=== PATIENT | male | born 1945 | race Hispanic/Latino ===

== ENCOUNTER → 2021-04-28 | Day surgery (SDC) | payer OTHER ==
[2021-04-24 09:43] LABS: BASOPHILS # (AUTO) 0.1 (0.0-0.1); BASOPHILS % 0.9 % (0.0-1.0); EOSINOPHILS # (AUTO) 0.1 (0.0-0.4); HEMATOCRIT 42.9 % (38.2-49.6); HEMOGLOBIN 14.3 g/dL (14.0-18.0); LYMPHOCYTES % 24.8 % (18.0-39.1); MEAN CORPUSCULAR HGB CONC 33.3 g/dL (31-35); MEAN CORPUSCULAR VOLUME 92.9 fL (81-99); MONOCYTES # (AUTO) 0.6 (0.2-0.8); MONOCYTES % 7.7 % (4.4-11.3); NEUTROPHILS # (AUTO) 5.2 (2.1-6.9); NEUTROPHILS % 65.5 % (38.7-80.0); PLATELET COUNT 310 x10e3/uL (140-360); RED BLOOD COUNT 4.62 x10e6/uL (4.3-5.7); RED CELL DISTRIBUTION WIDTH 13.7 % (11.7-14.4)
[2021-04-24 10:04] LABS: ALBUMIN 3.7 g/dL (3.5-5.0); ALBUMIN/GLOBULIN RATIO 0.9 (0.8-2.0); ANION GAP 13.8 mmol/L (8-16); CALCIUM 9.2 mg/dL (8.4-10.2); CREATININE, SERUM 0.98 mg/dL (0.72-1.25); POTASSIUM 3.8 mmol/L (3.5-5.1)
[~2021-04-28] VITALS: Ht 167.6 cm; Wt 66.7 kg
[2021-04-28] VITALS (10 sets, daily range): BP systolic 146–177; BP diastolic 70–92
[~2021-04-28] MED LIST: CRESTOR10 MG PO; DONEPEZIL HCL5 MG PO; FENTANYL CITRATE/PF 100MCG/2 ML INJ ONE; GLIPIZIDE-METF1 EAC2 PO; HEPARIN SOD/SOD CHLORIDE 2,000 ML ONE; IOPAMIDOL 300MG/ML 100 ML INFUS..BTL IV ONE; LEXAPRO10 MG PO; LIDOCAINE HCL 2% LOCAL 20 ML VIAL ONE; LOSARTAN POTAS100 MG PO; METOPROLOL SUCC50 MG PO; MIDAZOLAM HCL 2 MG/2 ML VIAL ONE; NIACIN500 M2 PO; NIFEDIPINE ER90 MG PO; PRASUGREL 10 MG TAB ONE; SODIUM CHLORIDE 0.9% 1000ML 1,000 ML ONE; SODIUM CHLORIDE 0.9% 50ML 50 ML ONE; VERAPAMIL HCL 2.5 MG/ML 2 ML VIAL ONE; [UNRECOGNIZED DRUG - OTHER] PO
== END | disposition home or self-care (01) ==
LOC: CATH LAB 12:00
PROVIDERS: ATTEND Internal Medicine Interventional Cardiology
DX: I70.223 Atherosclerosis of native arteries of extremities with rest pain, bilateral legs (principal); I20.8 Other forms of angina pectoris; E78.2 Mixed hyperlipidemia; I10 Essential (primary) hypertension; E11.59 Type 2 diabetes mellitus with other circulatory complications; E66.3 Overweight; Z01.812 Encounter for preprocedural laboratory examination; Z20.822 Contact with and (suspected) exposure to COVID-19; Z79.84 Long term (current) use of oral hypoglycemic drugs; Z79.899 Other long term (current) drug therapy; Z68.25 Body mass index [BMI] 25.0-25.9, adult
CPT/HCPCS: 36415 ×2; 37186; 37229; 76937; 80053; 82948; 83880; 85025; C1724; C1725; C1760; C1769 ×3; C1887 ×2; C1894; J2001; J2250; J3010; J7030; Q9967; U0002; 36247; 75630; 99152; 99153

== ENCOUNTER → 2021-06-02 | Day surgery (SDC) | payer OTHER ==
[2021-05-29 10:26] LABS: BASOPHILS # (AUTO) 0.1 (0.0-0.1); BASOPHILS % 1.1 % (0.0-1.0); EOSINOPHILS # (AUTO) 0.3 (0.0-0.4); EOSINOPHILS % 4.7 % (0.0-6.0); HEMOGLOBIN 13.9 g/dL (14.0-18.0); MEAN CORPUSCULAR HEMOGLOBIN 31.2 pg (28-32); MEAN CORPUSCULAR HGB CONC 33.9 g/dL (31-35); MEAN CORPUSCULAR VOLUME 92.1 fL (81-99); MONOCYTES # (AUTO) 0.6 (0.2-0.8); MONOCYTES % 9.1 % (4.4-11.3); NEUTROPHILS # (AUTO) 3.9 (2.1-6.9); NEUTROPHILS % 56.4 % (38.7-80.0); PLATELET COUNT 272 x10e3/uL (140-360); RED BLOOD COUNT 4.45 x10e6/uL (4.3-5.7); RED CELL DISTRIBUTION WIDTH 13.7 % (11.7-14.4)
[2021-05-29 11:02] LABS: ALBUMIN 3.4 g/dL (3.5-5.0); ALBUMIN/GLOBULIN RATIO 0.9 (0.8-2.0); CALCIUM 9.3 mg/dL (8.4-10.2); CREATININE, SERUM 1.16 mg/dL (0.72-1.25)
[2021-06-02] VITALS (10 sets, daily range): BP systolic 146–172; BP diastolic 70–83
[~2021-06-02] MED LIST changes: +ALPRAZOLAM 0.5 MG TAB ONE; +DIPHENHYDRAMINE HCL 25 MG CAP ONE; -LIDOCAINE HCL 2% LOCAL 20 ML VIAL ONE; -PRASUGREL 10 MG TAB ONE; -SODIUM CHLORIDE 0.9% 50ML 50 ML ONE; -VERAPAMIL HCL 2.5 MG/ML 2 ML VIAL ONE
== END | disposition home or self-care (01) ==
LOC: CATH LAB 12:51
PROVIDERS: ATTEND Internal Medicine Interventional Cardiology
DX: I70.222 Atherosclerosis of native arteries of extremities with rest pain, left leg (principal); I70.92 Chronic total occlusion of artery of the extremities; I20.8 Other forms of angina pectoris; E78.2 Mixed hyperlipidemia; E11.59 Type 2 diabetes mellitus with other circulatory complications; R06.00 Dyspnea, unspecified; E66.3 Overweight; Z71.3 Dietary counseling and surveillance; Z88.6 Allergy status to analgesic agent; Z88.0 Allergy status to penicillin; Z01.812 Encounter for preprocedural laboratory examination; Z20.822 Contact with and (suspected) exposure to COVID-19; Z79.84 Long term (current) use of oral hypoglycemic drugs; Z79.899 Other long term (current) drug therapy; Z68.28 Body mass index [BMI] 28.0-28.9, adult
CPT/HCPCS: 36415 ×2; 37229; 75710; 76937; 80053; 82948; 83880; 85025; C1769 ×3; C1887; J2250; J3010; J7030; Q9967; U0002; 99152; 99153

== ENCOUNTER 2021-08-04 11:01 | Observation (INO) | payer MEDICARE ==
[2021-07-31 11:54] LABS: BASOPHILS # (AUTO) 0.1 (0.0-0.1); BASOPHILS % 0.7 % (0.0-1.0); EOSINOPHILS # (AUTO) 0.2 (0.0-0.4); EOSINOPHILS % 3.5 % (0.0-6.0); HEMATOCRIT 40.3 % (38.2-49.6); HEMOGLOBIN 13.6 g/dL (14.0-18.0); LYMPHOCYTES # (AUTO) 1.8 (1.0-3.2); LYMPHOCYTES % 25.8 % (18.0-39.1); MEAN CORPUSCULAR HEMOGLOBIN 31.1 pg (28-32); MEAN CORPUSCULAR HGB CONC 33.7 g/dL (31-35); MEAN CORPUSCULAR VOLUME 92.2 fL (81-99); MONOCYTES # (AUTO) 0.6 (0.2-0.8); MONOCYTES % 8.3 % (4.4-11.3); NEUTROPHILS # (AUTO) 4.2 (2.1-6.9); NEUTROPHILS % 61.6 % (38.7-80.0); PLATELET COUNT 280 x10e3/uL (140-360); RED BLOOD COUNT 4.37 x10e6/uL (4.3-5.7); RED CELL DISTRIBUTION WIDTH 13.6 % (11.7-14.4)
[2021-07-31 12:39] LABS: ALBUMIN 3.2 g/dL (3.5-5.0); ALBUMIN/GLOBULIN RATIO 0.8 (0.8-2.0); ANION GAP 11.3 mmol/L (8-16); CALCIUM 8.2 mg/dL (8.4-10.2); CREATININE, SERUM 1.24 mg/dL (0.72-1.25); POTASSIUM 4.3 mmol/L (3.5-5.1)
[~2021-08-04] VITALS: Ht 167.6 cm; Wt 76.2 kg
[2021-08-04] VITALS (23 sets, daily range): BP systolic 104–151; BP diastolic 63–89
[~2021-08-04 11:01] MED LIST changes: -ALPRAZOLAM 0.5 MG TAB ONE; +CLOPIDOGREL75 MG PO; -DIPHENHYDRAMINE HCL 25 MG CAP ONE; -FENTANYL CITRATE/PF 100MCG/2 ML INJ ONE; -HEPARIN SOD/SOD CHLORIDE 2,000 ML ONE; -IOPAMIDOL 300MG/ML 100 ML INFUS..BTL IV ONE; -MIDAZOLAM HCL 2 MG/2 ML VIAL ONE; -SODIUM CHLORIDE 0.9% 1000ML 1,000 ML ONE
[2021-08-04] MEDS ORDERED: LYRICA50 MG PO (11:46)
[2021-08-04] MEDS ORDERED: ALPRAZOLAM 0.5 MG TAB ONE (12:03)
[2021-08-04] MEDS ORDERED: DIPHENHYDRAMINE HCL 25 MG CAP ONE (12:04)
[2021-08-04] MEDS ORDERED: FENTANYL CITRATE/PF 100MCG/2 ML INJ ONE (13:56)
[2021-08-04] MEDS ORDERED: HEPARIN SOD/SOD CHLORIDE 2,000 ML ONE (13:56)
[2021-08-04] MEDS ORDERED: MIDAZOLAM HCL 2 MG/2 ML VIAL ONE (13:56)
[2021-08-04] MEDS ORDERED: IOPAMIDOL 300MG/ML 100 ML INFUS..BTL IV ONE (13:56)
[2021-08-04] MEDS ORDERED: SODIUM CHLORIDE 0.9% 1000ML 1,000 ML ONE (13:57)
[2021-08-04] MEDS ORDERED: PROTAMINE SULFATE 10 MG/ML 5 ML VIAL ONE (14:53)
[2021-08-04] MEDS ORDERED: ONDANSETRON HCL INJ 2MG/ML 2ML 2 MG/ML VIAL IV PRN (15:45)
[2021-08-04] MEDS ORDERED: Morphine 4mg Syringe 4 MG/ML INJ IV PRN (15:45)
[2021-08-04] MEDS ORDERED: Morphine 2mg Syringe 2 MG/ML SYR IV PRN (15:45)
[2021-08-04] MEDS ORDERED: HYDROCODONE/APAP 5MG-325MG TAB PO PRN (15:45)
[2021-08-04] MEDS: SODIUM CHLORIDE 0.9% 1000ML 1,000 ML IV SCH (18:34)
[2021-08-05] VITALS: BP 117/71
[2021-08-05 04:00] VITALS: BP 130/74
[2021-08-05] MEDS: SODIUM CHLORIDE 0.9% 1000ML 1,000 ML IV SCH (05:09)
[2021-08-05 07:53] VITALS: BP 150/71
[2021-08-05 08:58] VITALS: BP 150/71
[2021-08-05 11:45] VITALS: BP 168/66
[2021-08-05] MEDS ORDERED: ASPIRIN CHEW81 MG PO (14:57)
== END 2021-08-05 15:51 | disposition home or self-care (01) ==
LOC: CATH LAB 11:01 → MED/SURG 18:19
PROVIDERS: ADMIT Internal Medicine Interventional Cardiology; ATTEND Internal Medicine Interventional Cardiology
DX: I70.221 Atherosclerosis of native arteries of extremities with rest pain, right leg (principal); Z01.818 Encounter for other preprocedural examination; Z20.822 Contact with and (suspected) exposure to COVID-19
CPT/HCPCS: 36415 ×3; 37186; 37229; 75710; 80053; 82948 ×2; 85025; C1724; C1766; C1769 ×4; C1894; G0378 ×2; J2250; J3010; J7030 ×2; Q9967; U0002; 36247; 99152; 99153; J2720